=== PATIENT | female | born 2000 | race Caucasian/White ===

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

== ENCOUNTER 2022-12-26 00:03 | Emergency (ER) | payer OTHER, MEDICAID, SELFPAY ==
[2022-12-26 00:04] VITALS: BP 134/72; PULSE 134; RESP 16; TEMP 36.5; O2SAT 98; BMI 31.4
--- NOTE | 2022-12-26 00:10 | EDS_ITS ---
HPI HPI - Female History of Present Illness Chief Complaint: Vag Bld, Preg Narrative Narrative: 22-year-old female past medical history of irregular menses presents with left- sided pelvic cramping, and 2 positive home test that she took today. She states with her regular menses, her last menstrual period was probably 2 months ago. 2 weeks ago, she had a very light menses, more like spotting. Additionally, for the past 2 weeks she has had left-sided pelvic and abdominal cramping. No exacerbating or alleviating factors. Perhaps mild nausea as well. She took 2 home test today if that they were positive. She is not currently having any vaginal bleeding but more cramping on the left. PFSH PFSH Medical History Herpes Smoker Allergy/AdvReac Type Severity Reaction Status Date / Time No Known Allergies Allergy Verified 12/26/22 00:03 Social History Smoking Status: Current every day smoker tobacco type: e-cigarettes ROS ROS ED ROS Narrative Constitutional: No fever, no chills. HEENT: No sore throat. No neck pain. No loss of vision. No rhinorrhea. Cardiovascular: No chest pain. No palpitations. No pedal edema. Respiratory: No cough, no shortness of breath. Abdominal: No abdominal pain. No nausea. No vomiting. Genitourinary: No dysuria. No hematuria. Positive left-sided pelvic cramping. No current vaginal bleeding, had spotting 2 weeks ago. Musculoskeletal: No myalgias. No arthralgias. Neurologic: No headaches. No dizziness. No lightheadedness. Skin: No rash. No change in color. Psychiatric: No depression. No anxiety. EXAM Physical Exam Narrative Exam Narrative: Afebrile. Vital signs noted. HEENT: Normocephalic. Atraumatic. PERRL, EOMI. Neck soft and supple. No point tenderness or step off. Cardiovascular: Positive tachycardia, no murmurs, rubs, or gallops appreciated. Respiratory: No tachypnea. Lungs clear to auscultation bilaterally. Gastrointestinal: Abdomen soft, nontender, with normoactive bowel sounds. No rebound or guarding. Genitourinary: Chaperoned pelvic examination reveals no evidence of any vaginal bleeding, no blood in the vaginal vault, no cervical motion tenderness. She does have mild left adnexal discomfort. Neurological: Awake. Alert. Nonfocal, nonlateralizing. Skin: No rash. Normal color. No pallor. Musculoskeletal: No pedal edema. Full range of motion extremities. Const Vital Signs: 12/26/22 00:04 12/26/22 02:03 Temperature 97.7 F L Temperature Source Temporal Pulse Rate 134 H 100 Respiratory Rate 16 17 Blood Pressure 134/72 H 137/80 H Blood Pressure Mean 92 99 Pulse Ox 98 100 Oxygen Delivery Method Room Air Room Air MDM MDM MDM Narrative Medical decision making narrative: In the differential diagnosis is nonspecific abdominal pain/pelvic pain but with 2 reported positive home test, she could have ectopic versus intrauterine . Comprehensive work-up was pursued. She was bolused normal saline 1 L intravenously. Pelvic exam will be obtained/performed with parts room clerk. In order to see if she is , serum will be obtained. I did order a quantitative measurement as well. I will obtain her blood type and CBC and CMP with urinalysis as she states this would be her first gestation. With her history of irregular menses and not having a period over the last 2 months, she could be further along than suspected. I reviewed the patient's laboratory work and she has a normal white count 9.5, hemoglobin normal at 12.2, hematocrit slightly low at 35.2, platelet count normal at 240. Electrolyte panel shows chloride elevated at 109 which I think is nonspecific, BUN normal at 11 with creatinine normal at 0.72. Glucose is appropriately elevated at 94 with a normal anion gap of 6, AST low at 11 with ALT normal at 22. Blood type is O+. Serum test is positive. Her quantitative beta-hCG is elevated at 2286. Given her left adnexal discomfort, concern would be more for ectopic . Ultrasound will be obtained. I reviewed the ultrasound results/radiology report which shows what appears to be an intrauterine gestational sac, but no yolk sac, and they are estimating that the gestational sac is 5 weeks and 2 days. Given that she has had irregular periods in the past, she may be very early in her , and not 9 weeks gestation. I discussed patient with Dr. Kaykay Sinclair who agrees with close outpatient follow-up. I wrote her a prescription to have her beta hCG drawn here at the hospital in 2 days. She can follow-up with [facility] in 3 to 5 days, ensuring that the beta-hCG is drawn prior to her appointment. She is to return with any vaginal bleeding, increased pain, new or worsening symptoms. I stressed the importance of close follow-up with [facility] as ectopic has not been ruled out. She acknowledges an understanding. Disposition is discharged home in stable condition. History & Record Review Discussion w/independent historian: Patient Additional record(s) reviewed:: Prior ED visit Lab Data Attestation: I reviewed the patient's lab results. Labs: Laboratory Results - last 24 hr 12/26/22 00:15 WBC 9.5 RBC 3.96 L Hgb 12.2 Hct 35.2 L MCV 88.9 MCH 30.8 MCHC 34.7 RDW Std Deviation 38.5 RDW Coeff of Fatuma 11.9 Plt Count 240 MPV 10.2 Immature Gran % (Auto) 0.700 Neut % (Auto) 67.2 Lymph % (Auto) 22.4 Moca % (Auto) 8.0 Eos % (Auto) 1.3 Baso % (Auto) 0.4 Absolute Neuts (auto) 6.3 Absolute Lymphs (auto) 2.12 Nucleated RBC % 0 Sodium 140 Potassium 3.5 Chloride 109 H Carbon Dioxide 25.0 Anion Gap 6 BUN 11 Creatinine 0.72 Estim Creat Clear Calc 107.63 Est GFR (MDRD) Af Amer 133 Est GFR (MDRD) Non-Af 110 BUN/Creatinine Ratio 15.4 Glucose 94 Calcium 8.9 Total Bilirubin 0.30 AST 11 L ALT 22 Alkaline Phosphatase 72 Total Protein 7.4 Albumin 3.6 Globulin 3.8 Albumin/Globulin Ratio 0.9 HCG, Quant 2286 H Serum , Qual POSITIVE H Blood Type O POSITIVE Radiography Diagnostic Testing: Clinical Impression(s) from Imaging Studies Obstetrics Ultrasound 12/26/22 00:58 IMPRESSION: No definite intrauterine . Ectopic cannot be excluded. Follow-up is recommended. Electronically Signed: Varun King MD at 3:10 EDT , Management Discussion w/another healthcare provider: [employer] Sawing Machine Operator (Dr. Kaykay Sinclair) Discharge Plan Triage Chief Complaint: Vag Bld, Preg ED Provider: Chuy Spears Dx/Rx/DC Orders Clinical Impression: Elevated serum hCG, Pelvic pain, Instructions: ED , New Dx Other Ambulatory Orders: HCG BETA-SUBUNIT QUANT. (Routine) Timeframe: 2 Days Facility: [facility] - Location: Laboratory Ordered By: Chuy Spears Primary Care Provider: Care Physician,No Primary Referrals: Kaykay Dennis DO [Med Staff - Active Staff] - 3-5 Days Care Physician,No Primary [Primary Care Provider] - Activity Restrictions/Additional Instructions: Call Dr. Sinclair for an appointment to be seen in follow-up within the next 3 to 5 days. Have your beta hCG drawn 2 days from now on 12/28/2022. Return with vaginal bleeding, increased pain, new or worsening symptoms. Start taking vitamins. Disposition Disposition: Home, Self Care
[2022-12-26] MEDS: 0.9% Normal Saline (1000mL) 1,000 ML 999 ML IV (00:25)
[2022-12-26 00:33] LABS: Absolute Lymphocyte Count 2.12 X10^3/uL (0.83-4.51); Absolute Neutrophil Count 6.3 X10^3/uL (2.0-7.7); Basophil# 0.04 X10^3/uL; Basophil% 0.4 % (0-1); Eosinophil# 0.12 X10^3/uL; Eosinophils% 1.3 % (0-5); Hematocrit 35.2 % (37-47); Hemoglobin 12.2 g/dL (12.0-15.0); Lymphocyte # 2.12 X10^3/ul (0.83-4.51); Lymphocyte % 22.4 % (19-41); Mean Corp Hgb Conc 34.7 g/dL (32-36); Mean Corpuscular Hgb 30.8 pg (27.0-32.0); Mean Corpuscular Volume 88.9 fL (81-99); Mean Platelet Vol. 10.2 fl (6.2-12.0); Monocyte# 0.76 X10^3/uL; NRBC Flagged by Analyzer 0 % (0-5); Neutrophil # 6.34 X10^3/uL (2.7-7.7); Neutrophil % 67.2 % (47-70); Platelet Count 240 K/mm3 (150-450); RBC Distribution Width CV 11.9 % (11.6-14.6); RBC Distribution Width SD 38.5 fl (35.1-43.9); Red Blood Count 3.96 M/mm3 (4.2-5.4); White Blood Count 9.5 K/mm3 (4.4-11.0)
[2022-12-26 00:46] LABS: Internal QC Validated? YES +Cl - CLEAR BKGD
--- NOTE | 2022-12-26 00:58 | US_ITS ---
INDICATION: Pain EXAMINATION: Ultrasound US OB Transvaginal TECHNIQUE: Transabdominal pelvic ultrasound was performed. Grayscale, spectral waveform, and color flow Doppler evaluation of the adnexa. COMPARISON: No relevant prior comparison study available LMP: [Unknown Beta-hCG: Unknown FINDINGS: UTERUS: 7.7 x 6.6 x 4.7 cm. RIGHT OVARY: 3.3 x 2.5 x 3 cm. Normal. LEFT OVARY: 3.5 x 2.1 x 1.8 cm. Normal. FREE FLUID: Small amount of free fluid in the pelvic cul-de-sac. INTRAUTERINE GESTATIONAL SAC(s) (size/shape): Single. Size (Mean sac diameter) and shape. YOLK SAC: Not identified POLE: Not identified ESTIMATED GESTATION AGE: 5 weeks and 2 days. SUBCHORIONIC HEMORRHAGE: None. AMNIOTIC FLUID: Qualitatively normal. US/Transvaginal w/Preg US IMPRESSION: No definite intrauterine . Ectopic cannot be excluded. Follow-up is recommended. Electronically Signed: Varun King MD at 3:10 EDT ,
[2022-12-26 00:59] LABS: ALB/GLOB Ratio 0.9 RATIO (0.9-2.4); AST(SGOT) 11 U/L (15-37); Alanine Aminotransfer ALT/SGPT 22 U/L (13-56); Albumin, Serum 3.6 g/dL (3.2-5.0); Alkaline Phosphatase 72 U/L (45-117); Anion Gap 6 (5-15); BUN 11 mg/dL (7-18); BUN/Creat Ratio 15.4 RATIO (10-20); Calcium,Total 8.9 mg/dL (8.5-10.1); Chloride 109 mmol/L (98-107); Creatinine, Serum 0.72 mg/dL (0.55-1.02); EST Glomerular Filtration Rate 110 mL/min (>60); Est Glom Filt Rate - Afr Amer 133 mL/min (>60); Estimated Creatinine Clearance 107.63 ml/min; Globulin 3.8 g/dL (2.2-4.2); Glucose 94 mg/dL (74-106); Potassium 3.5 mmol/L (3.5-5.1); Protein, Total 7.4 g/dL (6.4-8.2); Sodium Level 140 mmol/L (136-145)
[2022-12-26 01:10] LABS: Pregnancy, Serum, hCG Quali. POSITIVE Negative (0-9 Nonpreg); hCG Titer Quant., Serum 2286 mIU/mL (1-3)
[2022-12-26 02:03] VITALS: BP 137/80; PULSE 100; RESP 17; O2SAT 100
[2022-12-26 04:06] VITALS: PULSE 109; RESP 18; O2SAT 99
== END 2022-12-26 04:07 | disposition home or self-care (01) ==
PROVIDERS: Emergency Provider Emergency Medicine; Visit Provider Emergency Medicine
DX: O99.891 Other specified diseases and conditions complicating pregnancy (principal); R10.2 Pelvic and perineal pain; O99.331 Smoking (tobacco) complicating pregnancy, first trimester; F17.290 Nicotine dependence, other tobacco product, uncomplicated; Z3A.01 Less than 8 weeks gestation of pregnancy
CPT/HCPCS: 76817; 80053; 84702; 84703; 85025; 86900; 86901; 96360; 99283; J7030; A4216

== ENCOUNTER 2022-12-28 18:53 | Emergency (ER) | payer OTHER, MEDICAID, SELFPAY ==
[2022-12-28 18:54] VITALS: BP 116/78; PULSE 74; RESP 14; TEMP 36.4; O2SAT 98; BMI 29.2
--- NOTE | 2022-12-28 19:43 | ED.VIS.FEGU ---
HPI HPI - Female History of Present Illness Chief Complaint: Informant: patient Narrative Narrative: Patient presents needing a repeat hCG quant level. She was seen in the ER 2 days ago with pelvic pain and having to positive home test. Her quant was elevated at 2286. Her vaginal ultrasound revealed what they thought was a gestational sac but no yolk sac. The ER physician spoke with Dr. Sinclair who recommended she have a repeat quant drawn in 48 hours. It is now Friday and patient was not able to get in to get this drawn so she returns to the ER. She states her pelvic pain is actually significantly improved. She has not had any bleeding or spotting. PFSH PFS Medical History Herpes Smoker Home Medications NK 12/28/22 [History Last Taken Unknown] Allergy/AdvReac Type Severity Reaction Status Date / Time No Known Allergies Allergy Verified 12/28/22 18:54 Social History Smoking Status: Former smoker ROS ROS ED Constitutional Constitutional ED: Denies chills or fever(s) Eyes Eyes: Denies change in vision ENT ENT ED: Denies rhinorrhea or sore throat Cardiovascular Cardiovascular: Denies chest pain or palpitations Respiratory/Chest Respiratory/Chest: Denies cough or dyspnea Gastrointestinal Gastrointestinal: Denies abdominal pain, nausea or vomiting Genitourinary Genitourinary ED: Denies dysuria Musculoskeletal Musculoskeletal: Denies back pain or extremity pain Integumentary Denies Abrasions or rash Neurologic Neurologic: Denies headache(s) or weakness Psychiatric Psychiatric: Denies anxiety or depression Allergic/Immunologic Allergic/Immunologic ED: Denies lip swelling or urticaria EXAM Physical Exam Const Vital Signs: 12/28/22 18:54 12/28/22 20:49 Temperature 97.6 F L Temperature Source Temporal Pulse Rate 74 74 Respiratory Rate 14 14 Blood Pressure 116/78 116/78 Blood Pressure Mean 90 Pulse Ox 98 98 Oxygen Delivery Method Room Air Positive well nourished and well developed General Appearance ED: well developed HEENT Reports normocephalic and head/scalp atraumatic Eyes PERRL and EOMs intact bilaterally Neck supple Chest Wall inspection of chest normal and palpation of chest normal Resp normal respiratory effort and clear to auscultation bilaterally Cardio regular rate and regular rhythm GI normal to inspection, nondistended, normoactive bowel sounds Palpation: soft Back/Spine no CVA tenderness Extremity normal to inspection Neuro oriented x3 and no sensory deficits noted Sensorium / Orientation: alert Motor Exam: strength 5/5 throughout Psych mental status grossly normal Skin no rashes or lesions noted MDM MDM MDM Narrative Medical decision making narrative: Patient's recent ER visit is reviewed. Repeat quant obtained today. Patient's blood type is documented to be O+. Repeat quant is 6052. Patient's pain is improved and she has no tenderness on exam. She has had no bleeding or spotting. She will be discharged home. She wants to find a DIRECTOR OF PROPERTY MANAGEMENT in the [place] area as this is where she lives. Return instructions were given. Patient is comfortable with the plan. Lab Data Labs: Laboratory Results - last 24 hr 12/28/22 20:10 HCG, Quant 6052 H Discharge Plan Triage Chief Complaint: ED Provider: Kaykay Contreras Dx/Rx/DC Orders Clinical Impression: First trimester Instructions: 1st Trimester Prescriptions: No Action NK Primary Care Provider: Care Physician,No Primary Referrals: Care Physician,No Primary [Primary Care Provider] - Activity Restrictions/Additional Instructions: Establish care with an DIRECTOR OF PROPERTY MANAGEMENT in [place] as discussed. Please return for worsened pain, bleeding, spotting. Disposition Disposition: Home, Self Care Discharge Date/Time: 12/28/22 21:00
[2022-12-28 20:44] LABS: hCG Titer Quant., Serum 6052 mIU/mL (1-3)
[2022-12-28 20:49] VITALS: BP 116/78; PULSE 74; RESP 14; O2SAT 98
== END 2022-12-28 21:00 | disposition home or self-care (01) ==
PROVIDERS: Emergency Provider Emergency Medicine; Visit Provider Emergency Medicine
DX: Z34.91 Encounter for supervision of normal pregnancy, unspecified, first trimester (principal); Z87.891 Personal history of nicotine dependence
CPT/HCPCS: 84702; 99282; A4216

== ENCOUNTER 2023-05-24 05:54 | Emergency (ER) | payer OTHER, MEDICAID, SELFPAY ==
[2023-05-24 05:54] VITALS: BP 135/83; PULSE 89; RESP 18; TEMP 36.6; O2SAT 98; BMI 31.0
[2023-05-24 06:01] VITALS: BP 124/76; PULSE 66; RESP 16; TEMP 36.8; O2SAT 98
[2023-05-24] MEDS: 0.9% Normal Saline (1000mL) 1,000 ML 999 ML IV (06:40)
[2023-05-24 06:44] LABS: Bacteria 0 SEEN /hpf (None Seen); Mucous, Urine 0 SEEN /hpf (<or=2+); Red Blood Cells-Urine 0 SEEN /hpf (0-5)
[2023-05-24 06:47] VITALS: BP 124/76
[2023-05-24 06:48] LABS: Color, Urine Yellow (Yellow); Glucose, Dipstick Normal (Normal); Ketone-Dipstick Negative (Negative); Leukocyte Esterase-Dipstick 500 /ul (Negative); Nitrite-Dipstick Negative (Negative); Occult Blood-Urine 10 /ul (Negative); Protein-Dipstick Negative (Negative); Urine Bilirubin Dipstick Negative (Negative); Urine Clarity Clear (Clear); Urine Urobilinogen Normal (Normal)
[2023-05-24 06:49] LABS: Absolute Lymphocyte Count 1.64 X10^3/uL (0.83-4.51); Absolute Neutrophil Count 12.8 X10^3/uL (2.0-7.7); Basophil# 0.06 X10^3/uL; Basophil% 0.4 % (0-1); Eosinophil# 0.07 X10^3/uL; Eosinophils% 0.4 % (0-5); Hematocrit 36.4 % (37-47); Hemoglobin 12.5 g/dL (12.0-15.0); Lymphocyte # 1.64 X10^3/ul (0.83-4.51); Lymphocyte % 10.5 % (19-41); Mean Corp Hgb Conc 34.3 g/dL (32-36); Mean Corpuscular Hgb 30.9 pg (27.0-32.0); Mean Corpuscular Volume 90.1 fL (81-99); Mean Platelet Vol. 10.3 fl (6.2-12.0); Monocyte# 0.93 X10^3/uL; NRBC Flagged by Analyzer 0 % (0-5); Neutrophil # 12.75 X10^3/uL (2.7-7.7); Platelet Count 265 K/mm3 (150-450); RBC Distribution Width CV 12.8 % (11.6-14.6); RBC Distribution Width SD 42.5 fl (35.1-43.9); Red Blood Count 4.04 M/mm3 (4.2-5.4); White Blood Count 15.6 K/mm3 (4.4-11.0)
[2023-05-24 07:02] LABS: Anion Gap 5 (5-15); BUN 10 mg/dL (7-18); BUN/Creat Ratio 12.3 RATIO (10-20); Calcium,Total 10.2 mg/dL (8.5-10.1); Chloride 109 mmol/L (98-107); Creatinine, Serum 0.81 mg/dL (0.55-1.02); EST Glomerular Filtration Rate 95 mL/min (>60); Est Glom Filt Rate - Afr Amer 114 mL/min (>60); Estimated Creatinine Clearance 113.88 ml/min; Glucose 94 mg/dL (74-106); Sodium Level 138 mmol/L (136-145)
[2023-05-24 07:02] LABS: Squamous Epithelial Cells - UA 0-5 SEEN /hpf (5-10); White Blood Cells 0-5 SEEN /hpf (0-5)
--- NOTE | 2023-05-24 07:21 | US_ITS ---
HISTORY: pain. TECHNIQUE: Parisi scale and color doppler images were obtained of the kidneys. 67 images. COMPARISON: None. FINDINGS: RIGHT KIDNEY: 11.6 cm in length with a cortical thickness of 1.3 cm. Contour and echogenicity unremarkable. Moderate hydronephrosis. No gross renal mass demonstrated. LEFT KIDNEY: 13 cm in length with a cortical thickness of 1.5 cm. Contour and echogenicity unremarkable. Mild hydronephrosis. 4 mm interpolar calculus. URINARY BLADDER: Incompletely distended at 23 cc with a 6 mm bladder wall thickness. Bilateral ureteral jets visualized. OTHER: 13.1 cm spleen. US/Kidney and Bladder IMPRESSION: Bilateral hydronephrosis. 4 mm left renal calculus. Mild bladder wall thickening, which may be secondary to incomplete distention. Mild splenomegaly. Electronically Signed: Catherine Boswell MD at 9:32 EST ,
[2023-05-24] MEDS: Morphine 4 MG/ML Syringe IV (07:25)
[2023-05-24] MEDS: Ondansetron 4 MG/2 ML Vial IV (07:25)
--- NOTE | 2023-05-24 08:36 | EDS_ITS ---
HPI History of Present Illness Chief Complaint: Complaint Informant: patient Narrative Narrative: Patient is a 23-year-old female who is approximately 25 weeks . She states that she has been having urinary frequency but also some dysuria and was placed on a antibiotic. She states she finished this antibiotic and felt better for a few days and then symptoms returned. She states that she was seen at another facility where she was told she has a repeat UTI and was placed on Macrobid. She reports has been on this medication for 2 days but has now noticed bilateral back pain slightly greatest on the left. She states there was no excessive activity or acute trauma. She denies any vaginal bleeding or discharge. However with the worsening pain despite taking the antibiotic she has concerned that the infection is not improving and therefore comes in for evaluation PFSH PFSH Medical History Herpes Smoker Home Medications nitrofurantoin monohydrate/macrocrystals 100 mg capsule 100 mg PO Q12H 05/24/23 [History Last Taken Unknown] valacyclovir 500 mg tablet 500 mg PO DAILY 05/24/23 [History Last Taken Unknown] Allergy/AdvReac Type Severity Reaction Status Date / Time No Known Allergies Allergy Verified 05/24/23 05:55 Social History Smoking Status: Former smoker ROS ROS ED Constitutional Constitutional ED: Denies chills or fever(s) ENT ENT ED: Denies sore throat Cardiovascular Cardiovascular: Denies chest pain Respiratory/Chest Respiratory/Chest: Denies cough or dyspnea Gastrointestinal Gastrointestinal: Reports abdominal pain; Denies diarrhea, nausea or vomiting Genitourinary Genitourinary ED: Reports dysuria; Denies hematuria Musculoskeletal Musculoskeletal: Reports back pain Integumentary Denies rash Neurologic Neurologic: Denies headache(s) Hematologic/Lymphatic Hematologic/Lymphatic: Denies easy bleeding or easy bruising EXAM Physical Exam Const Vital Signs: 05/24/23 05:54 05/24/23 06:01 05/24/23 06:47 Temperature 97.9 F 98.2 F Temperature Source Oral Oral Pulse Rate 89 66 Respiratory Rate 18 16 Blood Pressure 135/83 H 124/76 H 124/76 H Blood Pressure Mean 100 92 92 Pulse Ox 98 98 Oxygen Delivery Method Room Air Room Air Positive well nourished and well developed General Appearance ED: well developed; Negative for pallor HEENT HEENT Narrative: Normocephalic atraumatic Eyes PERRL and EOMs intact bilaterally General Eye ED: Negative for scleral icterus Neck supple Neck Narrative: No nuchal rigidity or meningeal signs noted Resp normal respiratory effort and clear to auscultation bilaterally Resp Narrative: No nasal flaring retractions tachypnea or accessory muscle use Cardio regular rate and regular rhythm Rate: other Other Details: Radial and carotid pulses are equal and symmetric Heart is regular rate and rhythm without murmurs rubs or gallops GI non-tender and non-distended GI Narrative: Abdomen is gravid with fundus consistent with reported gestational age No pain on palpation Auscultation: normoactive bowel sounds Palpation: soft Back/Spine Back/Spine Narrative: Bilateral CVA tenderness is noted slightly greatest on the left that also seems to worsen with motion No overlying soft tissue changes to suggest trauma or infection Extremity normal to inspection Neuro oriented x3, CN's II-XII intact bilaterally and no sensory deficits noted Sensorium / Orientation: alert Motor Exam: strength 5/5 throughout Psych mental status grossly normal Skin no rashes or lesions noted General Skin Exam: Negative for jaundice or pallor MDM MDM MDM Narrative Medical decision making narrative: Patient presented to the ER with vitals and reported pain in her bilateral low back/flank region slightly greatest on the left without any obvious trauma or excessive activity. She also reported that she had just recently started her second round of antibiotics secondary to a persistent UTI and therefore diffe rential is for failure of outpatient therapy versus pyelonephritis versus kidney stone versus acute kidney injury or septicemia. Secondary to his basic blood work and a urine sample were obtained. Urine showed a white count of 15.6 which is nonspecific and could be elevated simply because of . The patient's kidney function is normal going against acute kidney injury and her urine shows no bacteria going against true UTI/pyelonephritis. There is also no blood reported in the microscopic urine going against kidney stone. However despite these negative/normal results she still have persistent pain and there is no overlying soft tissue changes to suggest cellulitis or shingles as a cause so a kidney ultrasound will be obtained to check for potential hydronephrosis or stone or fat stranding that is not showing up on labs. I felt this was more appropriate to perform an ultrasound at this time as the patient is and we will try to avoid radiation. At this time the patient's ultrasound is still pending and therefore she will be signed out to the day physician Dr. Spears. History & Record Review Discussion w/independent historian: Patient Lab Data Attestation: I reviewed the patient's lab results. Labs: Laboratory Results - last 24 hr 05/24/23 05/24/23 06:05 06:33 WBC 15.6 H RBC 4.04 L Hgb 12.5 Hct 36.4 L MCV 90.1 MCH 30.9 MCHC 34.3 RDW Std Deviation 42.5 RDW Coeff of Fatuma 12.8 Plt Count 265 MPV 10.3 Immature Gran % (Auto) 0.700 Neut % (Auto) 82.0 H Lymph % (Auto) 10.5 L Terrell % (Auto) 6.0 Eos % (Auto) 0.4 Baso % (Auto) 0.4 Absolute Neuts (auto) 12.8 H Absolute Lymphs (auto) 1.64 Nucleated RBC % 0 Sodium 138 Potassium 4.0 Chloride 109 H Carbon Dioxide 24.0 Anion Gap 5 BUN 10 Creatinine 0.81 Estim Creat Clear Calc 113.88 Est GFR (MDRD) Af Amer 114 Est GFR (MDRD) Non-Af 95 BUN/Creatinine Ratio 12.3 Glucose 94 Calcium 10.2 H Urine Color Yellow Urine Clarity Clear Urine pH 7.0 Ur Specific [place] 1.010 Urine Protein Negative Urine Glucose (UA) Normal Urine Ketones Negative Urine Occult Blood 10 H Urine Nitrite Negative Urine Bilirubin Negative Urine Urobilinogen Normal Ur Leukocyte Esterase 500 H Urine RBC 0 SEEN Urine WBC 0-5 SEEN Ur Squamous Epith Cells 0-5 SEEN Urine Bacteria 0 SEEN Urine Mucus 0 SEEN Discharge Plan Triage Chief Complaint: Complaint ED Provider: Tarik Moreira Dx/Rx/DC Orders Clinical Impression: Back pain during Prescriptions: No Action nitrofurantoin monohyd/m-cryst 100 mg capsule 100 mg PO Q12H valacyclovir 500 mg tablet 500 mg PO DAILY Patient Comments: TAKE 1 TABLET BY MOUTH ONCE DAILY Primary Care Provider: Care Physician,No Primary Referrals: Care Physician,No Primary [Primary Care Provider] -
[2023-05-24] MEDS: Acetaminophen 325 MG Tablet 650 MG PO (10:28)
[2023-05-24 10:35] VITALS: BP 129/88; PULSE 74; RESP 16; TEMP 36.4; O2SAT 99
== END 2023-05-24 10:37 | disposition home or self-care (01) ==
PROVIDERS: Emergency Provider Emergency Medicine; Visit Provider Emergency Medicine
DX: O26.832 Pregnancy related renal disease, second trimester (principal); N13.2 Hydronephrosis with renal and ureteral calculous obstruction; Z3A.25 25 weeks gestation of pregnancy; Z87.891 Personal history of nicotine dependence
CPT/HCPCS: 76770; 80048; 81001; 85025; 87086; 87088; 96361; 96374; 96375; 99284; J7030; J2405